=== PATIENT | male | born 2000 | race Hispanic/Latino ===

== ENCOUNTER → 2024-04-24 | Day surgery (SDC) | payer BC ==
[~2024-04-24] MED LIST: ACETAMINOPHEN 1000 MG/100 ML 100 ML IV ONE; CREATINE 50005000 MG PO; DEXAMETHASONE SOD PHOS INJ 4 MG/ML SDV ONE; FENTANYL CITRATE/PF 100MCG/2 ML INJ ONE; IGG PO; LIDOCAINE HCL 2% LOCAL INJ 5 ML SDV VIAL INJ ONE; ONDANSETRON HCL INJ 2MG/ML 2ML 2 MG/ML VIAL ONE; PROPOFOL IV EMULSION 10 MG/ML 20 ML VIAL ONE; [UNRECOGNIZED DRUG - OTHER] PO
[2024-04-24] MEDS: CLINDAMYCIN 600MG / 50ML 50 ML IV ONE (09:26)
[2024-04-24] MEDS: LACTATED RINGER'S 1,000 ML ONE (09:26)
[2024-04-24 14:05] VITALS: TEMP 97.1
[2024-04-24 16:00] VITALS: BP 123/60; PULSE 71; RESP 18; O2SAT 100
== END | disposition home or self-care (01) ==
LOC: OR 08:08
PROVIDERS: ATTEND Urology
DX: I86.1 Scrotal varices (principal); E29.1 Testicular hypofunction; R35.1 Nocturia; N43.40 Spermatocele of epididymis, unspecified; Z88.0 Allergy status to penicillin
CPT/HCPCS: 55530; J0131; J1100; J2003; J2405; J2704; J3010; J7121